=== PATIENT | male | born 2000 | race American Indian/Alaskan Native ===

== ENCOUNTER 2021-12-13 01:19 | Emergency (ER) | payer SELFPAY ==
[2021-12-13] MEDS ORDERED: Sodium Chloride 0.9% 2.5 ML Syringe FLUSH PRN (01:27)
[2021-12-13] MEDS ORDERED: Sodium Chloride 0.9% 10 ML Syringe FLUSH PRN (01:27)
[2021-12-13] MEDS ORDERED: Sodium Chloride 0.9% 1,000 ML IV ONE (01:27)
[2021-12-13] MEDS ORDERED: Ondansetron 4 MG/2 ML SDV IVPUSH ONE ×2 (01:27→05:20)
[2021-12-13 02:08] LABS: BLOOD UREA NITROGEN,BUN 9 mg/dL (7.0-18.0); CARBON DIOXIDE,CO2 23.2 mmol/L (21.0-32.0); CHLORIDE,CL 105 mmol/L (98-107); GLUCOSE RANDOM 100 mg/dL (74-106); LIPASE 68 U/L (73-393); SODIUM,NA 140 mmol/L (136-148)
[2021-12-13] MEDS ORDERED: Potassium Chloride 10% 20 MEQ/15 ML Soln 30 ML UD Cup PO ONE (05:20)
== END 2021-12-13 06:02 | disposition home or self-care (01) ==
LOC: MW.ED 01:19
DX: F10.129 Alcohol abuse with intoxication, unspecified (principal); Y90.6 Blood alcohol level of 120-199 mg/100 ml
CPT/HCPCS: 36415; 80053; 80307; 83690; 85025; 96361; 96374; 96376; 99284; A9270; J2405; J3490; J7030

== ENCOUNTER 2021-12-21 19:51 | Emergency (ER) | payer SELFPAY ==
[2021-12-21] MEDS ORDERED: Cyclobenzaprine 10 MG Tab PO ONE (20:25)
[2021-12-21] MEDS ORDERED: Ketorolac 30 MG/ML SDV IM ONE (20:25)
== END 2021-12-21 20:55 | disposition home or self-care (01) ==
LOC: MW.ED 19:51
DX: M54.6 Pain in thoracic spine (principal)
CPT/HCPCS: 96372; 99283; A9270; J1885